=== PATIENT | male | born 1990 | race Caucasian/White ===

== ENCOUNTER 2018-03-04 20:32 | Emergency (ER) | payer BC ==
[2018-03-04 20:58] VITALS: BP 155/88; PULSE 96; RESP 18; TEMP 97.5
[2018-03-04] MEDS ORDERED: MORPHINE SULFATE 2 MG/ML SYRINGE IM STA (21:09)
--- NOTE | 2018-03-04 21:32 | XR ---
PROCEDURE: XR hand complete LT - 3V DATE AND TIME: 03/04/2018 9:18 PM CLINICAL INDICATION: PHH; Pain TECHNIQUE: Department protocol COMPARISON: 12/13/2012 FINDINGS: There is no fracture or malalignment. The soft tissues are unremarkable, except for mild ir regularity at the palmar surface of the tip of the third finger. IMPRESSION: NO ACUTE PROCESS.
--- NOTE | 2018-03-04 22:39 | ED ---
General Adult HPI - General Chief complaint: Wound/Laceration Stated complaint: lt finger lac Source: patient, RN notes reviewed, old records reviewed Mode of arrival: ambulatory Limitations: no limitations - History of Present Illness Initial comments: 27-year-old male patient with no pertinent past medical history presents in ED after sustaining an injury to his distal left third finger. Patient was using a table saw cutting through her for when his hand slipped resulting in a sufficient laceration to his distal third digit on his left hand. Patient sustained no other injury. Patient denies use of blood thinners, familial coagulation disorder. Patient does not know date of last tetanus. Patient denies all other symptoms. Systemic: Pt denies fatigue, myalgia, fever/chills, rash. Pt denies weakness, night sweats, weight loss. Neuro: Pt denies headache, visual disturbances, syncope or pre-syncope. HEENT: Pt denies ocular discharge or irritation, otalgia, rhinorrhea, pharyngitis or notable lymphadenopathy. Cardiopulmonary: Pt denies chest pain, SOB, heart palpitations, dyspnea on exertion. Abdominal/GI: Pt denies abdominal pain, n/v/d. : Pt denies dysuria, burning w/ urination, frequency/urgency. Denies new onset urinary or bowel incontinence. MSK: Pt denies myalgia, loss of strength or function in extremities. Neuro: Pt denies new onset weakness, paresthesias. - Related Data Previous Rx's Medication Instructions Recorded Cephalexin [Keflex] 500 mg PO Q12HR 10 Days #20 cap 03/04/18 Allergies Allergy/AdvReac Type Severity Reaction Status Date / Time No Known Allergies Allergy Verified 03/04/18 21:12 Review of Systems ROS Statement: Those systems with pertinent positive or pertinent negative responses have been documented in the HPI. ROS Other: All systems not noted in ROS Statement are negative. Past Medical History Past Medical History: No Reported History History of Any Multi-Drug Resistant Organisms: None Reported Past Surgical History: No Surgical Hx Reported Past Psychological History: No Psychological Hx Reported Smoking Status: Current every day smoker Past Alcohol Use History: Daily Past Drug Use History: None Reported General Exam - General Exam Comments Initial Comments: Constitutional: NAD, AOX3, Pt has pleasant affect. HEENT: NC/AT, trachea midline, neck supple, no lymphadenopathy. Posterior pharynx non erythematous, without exudates. External ears appear normal, without discharge. Mucous membranes moist. Eyes PERRLA, EOM intact. There is no scleral icterus. No pallor noted. Cardiopulmonary: RRR, no murmurs, rubs or gallops, no JVD noted. Lungs CTAB in anterior and posterior clark. No peripheral edema. Abdominal exam: Abdomen soft and non-distended. Abdomen non-tender to palpation in all 4 quadrants. Bowel sounds active in LLQ. No hepatosplenomegaly. No ecchymosis Neuro: CN II-XII grossly intact. No nuchal rigidity. MSK: Approximately 1x1 cm laceration at distal tip of third digit on right hand. Hemostasis achieved without intervention. Neurovascularly intact, sensation intact, capillary refill less than 2 seconds, radial pulse +2 bilaterally. No posterior calf tenderness bilaterally, homans sign negative bilaterally. Posterior tibialis and radial pulse +2 bilaterally. Sensation intact in upper and lower extremities. Full active ROM in upper and lower extremities, 5/5 stregnth. Limitations: no limitations Course Vital Signs 03/04/18 20:55 Temperature 97.5 F L Pulse Rate 96 Respiratory 18 Rate Blood Pressure 155/88 O2 Sat by Pulse 100 Oximetry Medical Decision Making - Medical Decision Making 27-year-old male patient presents to ED with superficial laceration of third digit and fourth and from table saw. Physical exam displayed superficial laceration, hemostasis achieved without intervention, sensation intact, capillary refill less than 2 seconds, radial pulse +2 bilaterally, no other acute pathology on physical exam. Plain film did not display any acute fracture , foreign body or any other abnormality. Patient tetanus updated. Patient given Keflex for infection prophylaxis. Patient to follow PCP in 1-2 days. Patient educated about signs and symptoms of infection. Patient to return to ED if new signs symptoms develop including worsening pain, redness, discharge, streaking, fever chills, nausea vomiting diarrhea. Patient educated wound management. Patient to keep wound loosely covered. Explained healing process to patient in depth. Case discussed with Dr. Anguiano. Disposition Clinical Impression: Laceration Disposition: HOME SELF-CARE Condition: Good Instructions: Laceration (ED) Additional Instructions: Patient to adhere to previously discussed treatment plan and will take medication(s) as directed. Patient to follow up with PCP in 1-2 days. Patient to return to ED if symptoms do not improve. Prescriptions: Cephalexin [Keflex] 500 mg PO Q12HR 10 Days #20 cap Is patient prescribed a controlled substance at d/c from ED?: No Referrals: Shawna Lacey DO [Primary Care Provider] - 1-2 days Time of Disposition: 22:39
[2018-03-04] MEDS ORDERED: DIPH,PERTUS(ACELL)TETVAC-LF 0.5 ML VIAL IM ONE (22:47)
== END 2018-03-04 23:45 | disposition home or self-care (01) ==
LOC: EC 20:32
DX: S61.213A Laceration without foreign body of left middle finger without damage to nail, initial encounter (principal); S61.215A Laceration without foreign body of left ring finger without damage to nail, initial encounter; F17.200 Nicotine dependence, unspecified, uncomplicated; Z23 Encounter for immunization; W27.0XXA Contact with workbench tool, initial encounter; Y93.89 Activity, other specified; Y92.009 Unspecified place in unspecified non-institutional (private) residence as the place of occurrence of the external cause
CPT/HCPCS: 99283 ×2; 96372 ×2; 90471 ×2; 73130; 90715; J2270

== ENCOUNTER 2020-08-01 12:47 | Emergency (ER) | payer BC ==
[2020-08-01 12:56] VITALS: BP 141/90; PULSE 97; RESP 18; TEMP 97.9
[2020-08-01] MEDS ORDERED: ALPRAZolam 1 MG TAB PO STA (13:13)
--- NOTE | 2020-08-01 13:16 | ED ---
General Adult HPI - General Chief complaint: Anxiety Stated complaint: chest pain, poss anxiety Time Seen by Provider: 08/01/20 13:00 Source: patient Mode of arrival: wheelchair Limitations: no limitations - History of Present Illness Initial comments: Dictation was produced using [employer] dictation software. please excuse any grammatical, word or spelling errors. This patient was cared for during a federal and state declared state of emergency secondary to Covid 19 Chief Complaint: 30-year-old male with no past medical history presents to the emergency department for anxiety reaction History of Present Illness: Is 30-year-old male who has past medical history of anxiety attack. Patient states that he's been feeling more anxious recently because his recent stillborn fetus with his significant other. Patient states he did have some mild chest tightness in his left upper chest. He does complain of some mild dyspnea associated with it. Patient denies any past medical history of any cardiac disease. States that there is no family history of sudden or coronary artery disease in the family. Does report that his mot her had cardiomyopathy that he was told was from a viral infection. The ROS documented in this emergency department record has been reviewed and confirmed by me. Those systems with pertinent positive or negative responses have been documented in the HPI. All other systems are other negative and/or noncontributory. PHYSICAL EXAM: General Impression: Alert and oriented x3, not in acute distress HEENT: Normocephalic atraumatic, extra-ocular movements intact, pupils equal and reactive to light bilaterally, mucous membranes moist. Cardiovascular: Heart regular rate and rhythm Chest: Able to complete full sentences, no retractions, no tachypnea Abdomen: abdomen soft, non-tender, non-distended, no organomegaly Musculoskeletal: Pulses present and equal in all extremities, no peripheral sammi ma Motor: no focal deficits noted Neurological: CN II-XII grossly intact, no focal motor or sensory deficits noted Skin: Intact with no visualized rashes Psych: Normal affect and mood ED course: 30 year old male presents to the emergency department for anxiety reaction. He does have atypical chest pain features. Signs upon arrival are within acceptable limits. Patient's not hypoxic. Is not tachycardic. EKG does not show any signs of ischemia or infarction. Chest x-ray is unremarkable. Patient reevaluated bedside at 2 PM in stable medical condition. Patient is well-appearing at bedside. Showing signs of distress. Is improved after anxiolytic. Return precautions discussed. Patient will be discharged. EKG interpretation: Ventricular rate 80, normal sinus rhythm,. 118, QRS 96, QTC 422. No DC prolongation, no QTC prolongation, no ST or T-wave changes noted. . Overall, this EKG is unremarkable - Related Data Previous Rx's Medication Instructions Recorded Cephalexin [Keflex] 500 mg PO Q12HR 10 Days #20 cap 03/04/18 ALPRAZolam [Xanax] 0.25 mg PO DAILY PRN #2 tab 08/01/20 Allergies Allergy/AdvReac Type Severity Reaction Status Date / Time No Known Allergies Allergy Verified 08/01/20 12:53 Review of Systems ROS Statement: Those systems with pertinent positive or pertinent negative responses have been documented in the HPI. ROS Other: All systems not noted in ROS Statement are negative. Past Medical History Past Medical History: No Reported History History of Any Multi-Drug Resistant Organisms: None Reported Past Surgical History: No Surgical Hx Reported Past Psychological History: No Psychological Hx Reported Past Alcohol Use History: Occasional Past Drug Use History: None Reported General Exam Limitations: no limitations Course Vital Signs 08/01/20 12:54 Temperature 97.9 F Pulse Rate 97 Respiratory 18 Rate Blood Pressure 141/90 O2 Sat by Pulse 99 Oximetry Disposition Clinical Impression: Acute anxiety Disposition: HOME SELF-CARE Condition: Good Instructions (If sedation given, give patient instructions): Generalized Anxiety Disorder (ED) Prescriptions: ALPRAZolam [Xanax] 0.25 mg PO DAILY PRN #2 tab PRN Reason: Anxiety Is patient prescribed a controlled substance at d/c from ED?: Yes If prescribed controlled substance>3 days was MAPS reviewed?: Prescribed <3 Days Referrals: Shawna Lacey DO [Primary Care Provider] - 1-2 days Time of Disposition: 14:04
--- NOTE | 2020-08-01 13:42 | XR ---
EXAMINATION TYPE: XR chest 2V DATE OF EXAM: 08/01/2020 COMPARISON: NONE HISTORY: Chest pain TECHNIQUE: Frontal and lateral views of the chest are obtained. FINDINGS: There is no focal air space opacity. No evidence for pneumothorax. No pleural effusion. The cardiac silhouette size is within normal limits. The osseous structures are grossly intact. IMPRESSION: 1. No acute cardiopulmonary process.
== END 2020-08-01 14:14 | disposition home or self-care (01) ==
LOC: EC 12:47
DX: F41.9 Anxiety disorder, unspecified (principal)
CPT/HCPCS: 71046; 93005; 99285